=== PATIENT | female | born 1995 | race Caucasian/White ===

== ENCOUNTER 2025-07-11 08:16 | Outpatient (CLI) | payer OTHER, SELFPAY ==
[2025-07-12 22:28] LABS: HPV Source Cervix
[2025-07-16 09:40] LABS: Pap Test Digital Imaging Done
== END 2025-07-11 08:17 | disposition home or self-care (01) ==
PROVIDERS: PCP Family Medicine; Visit Provider Nurse Practitioner Family
DX: Z11.51 Encounter for screening for human papillomavirus (HPV) (principal); Z12.4 Encounter for screening for malignant neoplasm of cervix; R23.3 Spontaneous ecchymoses; R53.83 Other fatigue; D64.9 Anemia, unspecified; Z13.6 Encounter for screening for cardiovascular disorders
CPT/HCPCS: 80053; 80061; 82728; 83540; 83550; 84443; 87624; 87625; 88141; 88142; 88175